=== PATIENT | female | born 1990 | race Caucasian/White ===

== ENCOUNTER 2018-11-04 03:53 | Emergency (ER) | payer SELFPAY ==
[~2018-11-04] VITALS: Ht 157.5 cm; Wt 85.9 kg
[~2018-11-04 03:53] MED LIST: ACET325T33 PO; ACET500C5 PO; OXYM30MI NASAL
[2018-11-04 03:57] VITALS: BP 118/68; PULSE 74; RESP 17; Ht 157.5 cm; Wt 85.9 kg
== END 2018-11-04 05:07 | disposition home or self-care (01) ==
LOC: FTE 03:53
DX: J02.9 Acute pharyngitis, unspecified (principal)
CPT/HCPCS: 99282

== ENCOUNTER 2018-11-17 15:20 | Emergency (ER) | payer MEDICAID ==
[~2018-11-17] VITALS: Ht 157.5 cm; Wt 85.8 kg
[2018-11-17 15:34] VITALS: Ht 157.5 cm; Wt 85.8 kg
[2018-11-17] MEDS ORDERED: ACETAMINOPHEN 500 MG TAB PO STA (19:03)
[2018-11-17 19:14] VITALS: BP 117/73; PULSE 65; RESP 17
== END 2018-11-17 19:14 | disposition home or self-care (01) ==
LOC: FTE 15:20
DX: O02.1 Missed abortion (principal)
CPT/HCPCS: 76801; 76817; 81003; 84702; 85025; 86900; 86901; Z7610; 36415